=== PATIENT | male | born 1960 | race African-American/Black ===

== ENCOUNTER 2017-02-17 01:04 | Emergency (ER) | payer SELFPAY ==
[2017-02-17 01:55] LABS: ALT (SGPT) 17 U/L (8-55); AST (SGOT) 21 U/L (5-34); Alcohol Less than 10 mg/dL (Less than 10); Alkaline Phosphatase 77 U/L (40-150); Anion Gap 14 mmol/L (10-20); BUN (Urea Nitrogen) 13 mg/dL (8.4-25.7); Bilirubin, Total 0.9 mg/dL (0.2-1.2); Calc. Creatinine Clearance 0 mL/min (70-130); Calcium 8.6 mg/dL (7.8-10.44); Carbon Dioxide 22 mmol/L (22-29); Chloride 105 mmol/L (98-107); Estimated GFR-MDRD 85; Globulin 2.9 g/dL (2.4-3.5); Glucose 114 mg/dL (70-105); Potassium 3.3 mmol/L (3.5-5.1); Protein, Total 6.9 g/dL (6.0-8.3); Sodium 138 mmol/L (136-145)
[2017-02-17 02:02] LABS: CKMB 2.6 ng/mL (0-6.6); Troponin I 0.019 ng/mL (< 0.028)
[2017-02-17 02:07] LABS: Hemoglobin 12.7 g/dL (14.0-18.0); Mean Corpuscular HGB CONC 31.3 g/dL (32.0-36.0); Mean Corpuscular Hemoglobin 25.3 pg (27.0-31.0); Mean Corpuscular Volume 80.9 fL (80.0-94.0); Mean Platelet Volume 8.8 fL (7.4-10.4); Platelet Count 208 thou/uL (130-400); RBC Distribution Width 13.8 % (11.5-14.5); Red Blood Cell (RBC) Count 5.01 mill/uL (4.70-6.10); White Blood Cell (WBC) Count 6.8 thou/uL (4.8-10.8)
[2017-02-17 02:08] LABS: #Basophils 0.1 thou/uL (0.0-0.2); #Eosinphils 0.6 thou/uL (0.0-0.7); #Monocytes 0.5 thou/uL (0.11-0.59); #Neutrophils 2.7 thou/uL (1.40-6.50); %Basophils 1.8 % (0.0-1.0); %Eosinophils 8.1 % (0.0-10.0); %Lymphocytes 43.5 % (21.0-51.0); %Neutrophils 39.6 % (42.0-75.0)
[2017-02-17 03:18] LABS: Bilirubin Negative (Negative); Blood, Urine Negative (Negative); Clarity Clear (Clear); Glucose, Urine (Dipstick) Negative (Negative); Leukocyte Negative (Negative); Nitrite Negative (Negative); Protein, Urine (Dipstick) Negative (Neg-Trace); Specific Gravity, Urine 1.015 (1.005-1.030); Urobilinogen 0.2 mg/dL (0.2-1.0); pH, Urine 5.5 (5.0-9.0)
[2017-02-17 03:19] LABS: Amphetamine Not Detected (NotDetected); Barbiturates Screen Not Detected (NotDetected); Benzodiazepine Screen Not Detected (NotDetected); Cocaine Metabolite Screen Detected (NotDetected); Medtox Control Line Valid? VALID (VALID); Methadone Not Detected (NotDetected); Methamphetamine Not Detected (NotDetected); Opiate Screen Not Detected (NotDetected); Oxycodone Screen Not Detected (NotDetected); Phencyclidine (PCP) Not Detected (NotDetected); THC/Cannabinoid Screen Detected (NotDetected); Tricyclic Screen Not Detected (NotDetected)
--- NOTE | 2017-02-17 07:41 | CT ---
PRELIMINARY REPORT/[facility]/EMERGENCY AFTER HOURS PROCEDURE: EXAM: CT Head Without Intravenous Contrast CLINICAL HISTORY: 56 years old, male; Injury or trauma; Fall; Patient HX: Syncope episode with fall, abrasion above ri ght eyebrow TECHNIQUE: Axial computed tomography images of the head/brain without intravenous contrast. Coronal and sagittal reformatted images were created and reviewed. COMPARISON: No relevant prior studies available. FINDINGS: Brain: No acute findings. No hemorrhage. No significant white matter disease. No edema. Left anterio r parafalcine extra-axial 12 x 8 mm calcification consistent with meningioma. Ventricles: No acute findings. No ventriculomegaly. Bones/joints: No acute findings. No acute fracture. Soft tissues: No acute findings. Sinuses: Unremarkable as visualized. No acute sinusitis. Mastoid air cells: Unremarkable as visualized. No mastoid effusion. IMPRESSION: No acute intracranial pathology. Left anterior parafalcine extra-axial 12 x 8 mm calcification consistent with meningioma. Thank you for allowing us to participate in the care of your patient. Dictated and Authenticated by: Silviano Pearson MD 02/17/2017 1:55 AM Central Time ([place] \T\ [place]) FINAL REPORT CT HEAD WITHOUT CONTRAST: No evidence of acute abnormality. I am in agreement with the preliminary report. POS: [facility]
--- NOTE | 2017-02-17 07:42 | CT ---
PRELIMINARY REPORT/[facility]/EMERGENCY AFTER HOURS PROCEDURE: EXAM: CT Cervical Spine Without Intravenous Contrast CLINICAL HISTORY: 56 years old, male; Injury or trauma; Fall; Initial encounter; Abrasion and blunt trauma; Patient HX : Syncope episode, fall, neck pain TECHNIQUE: Axial computed tomography images of the cervical spine without intravenous contrast. Coronal and sagittal reformatted images were created and reviewed. COMPARISON: No relevant prior studies available. FINDINGS: Vertebrae: No fracture or dislocation. No acute compression deformity. No suspicious osseous lesions . Disc spaces / canal / foramina: There is multilevel degenerative disc space narrowing and spur forma tion. No CT evidence of advanced canal or foraminal stenosis. Paraspinal soft tissues: No pathologic masses or fluid collections. No visible soft tissue air. IMPRESSION: Chronic degenerative changes without acute fracture or dislocation. Thank you for allowing us to participate in the care of your patient. Dictated and Authenticated by: Silviano Pearson MD 02/17/2017 1:58 AM Central Time ([place] \T\ [place]) FINAL REPORT CT CERVICAL SPINE: No evidence of acute fracture. Degenerative changes are seen. I am in agreement with the prelimina ry report. POS: [facility]
[2017-02-17] MEDS ORDERED: Sodium Chloride Irrig Solution 250 ML BOT ONE (09:22)
[2017-02-17] MEDS ORDERED: Sodium Chloride 0.9% 1,000 ML BAG ONE (09:22)
== END 2017-02-17 03:45 | disposition home or self-care (01) ==
LOC: MADERS 01:04
DX: R55 Syncope and collapse (principal)
CPT/HCPCS: 36415; 36416; 70450; 72125; 80053; 80306; 80307; 81003; 82553; 84484; 85025; 93005; 96360; J7050